=== PATIENT | female | born 1980 | race Hispanic/Latino ===

== ENCOUNTER 2018-04-09 23:12 | Emergency (ER) | payer SELFPAY ==
[2018-04-09] MEDS ORDERED: KETOROLAC 30 MG/ML INJ ONE (23:46)
[2018-04-09] MEDS ORDERED: NA CHLORIDE 0.9% 1,000 ML ONE (23:47)
[2018-04-09] MEDS ORDERED: CEFTRIAXONE/SWI 1gm 1 GM/10 ML SYR ONE ×2 (23:47)
[2018-04-10 00:25] LABS: Absolute Lymphocytes (CBC) 1.5 K/uL (0.7-4.9); Absolute Monocytes 0.5 K/uL (0.1-1.3); Absolute Neutrophil 2.3 K/uL (1.8-8.0); Basophils % 0.1 % (0-1.3); Eosinophils % 0.5 % (0-4.4); Lymphocytes % 34.3 % (15.3-44.8); MCH 26.5 pg (27.0-35.0); MCV 79.2 fL (80-100); MPV 9.8 fL (7.6-11.3); Monocytes % 11.3 % (3.3-12.3); RBC Red Blood Cell Count 4.41 M/uL (3.86-4.86)
[2018-04-10 00:43] LABS: ALT/SGPT 12 U/L (12-78); AST/SGOT 10 U/L (15-37); Albumin 3.4 g/dL (3.4-5.0); Alkaline Phosphatase 61 U/L (45-117); BUN Blood Urea Nitrogen 12 mg/dL (7-18); Bicarbonate 26 mmol/L (21-32); Bilirubin Direct < 0.1 mg/dL (0-0.2); Bilirubin Total 0.2 mg/dL (0.2-1.0); Glucose Level 98 mg/dL (74-106); Lipase 113 U/L (73-393); Potassium 3.6 mmol/L (3.5-5.1); Protein, Total 6.9 g/dL (6.4-8.2); Sodium Level 138 mmol/L (136-145)
--- NOTE | 2018-04-10 01:00 | ER ---
Nurse's Notes [facility] Name: Yesy Alexander Age: 37 yrs Sex: Female : 1980 Arrival Date: 04/09/2018 Time: 23:12 Bed 23 Private MD: Diagnosis: Low back pain;Constipation;Anemia, unspecified Presentation: 04/09 23:15 Presenting complaint: Patient states: that she is having right mid back and flank pain. fc Denies any urinary problems. Also denies any nausea, vomiting or diarrhea. Transition of care: patient was not received from another setting of care. Onset of symptoms was April 09, 2018 at 22:00. Risk Assessment: Do you want to hurt yourself or someone else? Patient reports no desire to harm self or others. Initial Sepsis Screen: Does the patient meet any 2 criteria? No. Patient's initial sepsis screen is negative. Does the patient have a suspected source of infection? No. Patient's initial sepsis screen is negative. Care prior to arrival: None. 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 - Social history:: Smoking status: Patient uses tobacco products, smokes one pack cigarettes per day. Patient uses alcohol, occasionally. Patient/guardian denies using street drugs. - Ebola Screening: : Patient negative for fever greater than or equal to 101.5 degrees Fahrenheit, and additional compatible Ebola Virus Disease symptoms Patient denies exposure to infectious person Patient denies travel to an Ebola-affected area in the 21 days before illness onset. - Family history:: not pertinent. Screenin:15 Abuse screen: Denies threats or abuse. Nutritional screening: No deficits noted. fc Tuberculosis screening: No symptoms or risk factors identified. Fall Risk None identified. Assessment: 04/10 00:19 General: Appears in no apparent distress. slender, well groomed, well developed, well tl3 nourished, Behavior is calm, cooperative, appropriate for age. Pain: Complains of pain in right low back and right mid back Pain currently is 6 out of 10 on a pain scale. Pain began 1 hour ago. Neuro: Level of Consciousness is awake, alert, obeys commands, Oriented to person, place, time, situation, Appropriate for age. Cardiovascular: Patient's skin is warm and dry. Respiratory: Airway is patent Respiratory effort is even, unlabored, Respiratory pattern is regular, symmetrical. GI: No signs and/or symptoms were reported involving the gastrointestinal system. : No signs and/or symptoms were reported regarding the genitourinary system. EENT: No signs and/or symptoms were reported regarding the EENT system. Derm: No signs and/or symptoms reported regarding the dermatologic system. 01:16 Reassessment: Patient appears in no apparent distress at this time. Patient and/or mg2 family updated on plan of care and expected duration. Pain level reassessed. Patient is alert, oriented x 3, equal unlabored respirations, skin warm/dry/pink. Vital Signs: 04/09 23:15 BP 125 / 73; Pulse 79; Resp 18; Temp 98.1(O); Pulse Ox 98% on R/A; Weight 72.57 kg (R); fc Height 5 ft. 5 in. (165.10 cm) (R); Pain 10/10; 04/10 00:19 Pulse 72; Resp 18; Pulse Ox 98% on R/A; tl3 01:16 BP 114 / 60; Pulse 71; Resp 18; Pulse Ox 100% on R/A; Pain 0/10; mg2 04/09 23:15 Body Mass Index 26.63 (72.57 kg, 165.10 cm) ED Course: 04/09 23:12 Patient arrived in ED. ds1 23:15 Arm band placed on Patient placed in an exam room, on a stretcher. fc 23:15 Patient has correct armband on for positive identification. Placed in gown. Bed in low fc position. Call light in reach. Pulse ox on. NIBP on. 23:15 No provider procedures requiring assistance completed. fc 23:17 Claude Edwards MD is Attending Physician. otilio 23:23 Triage completed. fc 23:36 Sonia Rios RN is Primary Nurse. tl3 23:40 Initial lab(s) drawn, by me, sent to lab. Inserted saline lock: 20 gauge in right tl3 antecubital area, using aseptic technique. Blood collected. 23:58 Patient moved to OR via wheelchair. kw1 04/10 00:06 CT completed. Patient tolerated procedure well. Patient moved back from OR. kw1 00:07 CT Stone Protocol In Process Unspecified. EDMS 01:17 IV discontinued, intact, bleeding controlled, No redness/swelling at site. Pressure mg2 dressing applied. Administered Medications: 04/09 23:40 Drug: Rocephin - (cefTRIAXone) 1 grams Route: IVPB; Infused Over: 5 mins; Site: right tl3 antecubital; Delivery: Primary tubing; 04/10 00:20 Follow up: IV Status: Completed infusion; IV Intake: 20ml tl3 04/09 23:44 Drug: TORadol 30 mg Route: IVP; Infused Over: 2 mins; Site: right antecubital; tl3 04/10 00:21 Follow up: Response: No adverse reaction; Pain is decreased tl3 00:26 Drug: NS 0.9% 1000 ml Route: IV; Rate: 1 bolus; Site: right antecubital; Delivery: tl3 Primary tubing; 01:17 Follow up: Response: No adverse reaction; IV Status: Completed infusion mg2 Intake: 00:20 IV: 20ml; Total: 20ml. tl3 Outcome: 00:59 Discharge ordered by . otilio 01:17 Discharged to home ambulatory, with family. mg2 01:17 Condition: stable 01:17 Discharge instructions given to patient, family, Instructed on discharge instructions, follow up and referral plans. medication usage, Demonstrated understanding of instructions, follow-up care, medications, Prescriptions given X 3. 01:18 Patient left the ED. mg2 Signatures: Dispatcher [employer] EDMO Claude Edwards MD MD cha Chretien, Felicia, RN RN Isabela Jc ds1 Mary Jo Hurtado kw1 Sonia Rios RN RN tl3 Kurt Melendrez RN RN mg2
--- NOTE | 2018-04-10 01:00 | EDPHYS ---
Physician Documentation [facility] Name: Yesy Alexander Age: 37 yrs Sex: Female : 1980 Arrival Date: 04/09/2018 Time: 23:12 Bed 23 Private MD: ED Physician Claude Edwards HPI: 04/09 23:35 This 37 yrs old Female presents to ER via Ambulatory with complaints of Back otilio Pain. 23:35 The patient presents with pain that is acute, with no known mechanism of injury. The otilio symptoms are located in the right mid back and right low back. Onset: The symptoms/episode began/occurred just prior to arrival. The pain does not radiate. Associated signs and symptoms: The patient has no apparent associated signs or symptoms. Modifying factors: The patient symptoms are alleviated by nothing, the patient symptoms are aggravated by movement. Severity of symptoms: At their worst the symptoms were mild, moderate, in the emergency department the symptoms are unchanged. 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 - Social history:: Smoking status: Patient uses tobacco products, smokes one pack cigarettes per day. Patient uses alcohol, occasionally. Patient/guardian denies using street drugs. - Ebola Screening: : Patient negative for fever greater than or equal to 101.5 degrees Fahrenheit, and additional compatible Ebola Virus Disease symptoms Patient denies exposure to infectious person Patient denies travel to an Ebola-affected area in the 21 days before illness onset. - Family history:: not pertinent. ROS: 23:35 Constitutional: Negative for fever, chills, and weight loss, Eyes: Negative for injury, otilio pain, redness, and discharge, ENT: Negative for injury, pain, and discharge, Neck: Negative for injury, pain, and swelling, Cardiovascular: Negative for chest pain, palpitations, and edema, Respiratory: Negative for shortness of breath, cough, wheezing, and pleuritic chest pain, Abdomen/GI: Negative for abdominal pain, nausea, vomiting, diarrhea, and constipation, : Negative for injury, bleeding, discharge, and swelling, MS/Extremity: Negative for injury and deformity, Skin: Negative for injury, rash, and discoloration, Neuro: Negative for headache, weakness, numbness, tingling, and seizure, Psych: Negative for depression, anxiety, suicide ideation, homicidal ideation, and hallucinations, Allergy/Immunology: Negative for hives, rash, and allergies, Endocrine: Negative for neck swelling, polydipsia, polyuria, polyphagia, and marked weight changes, Hematologic/Lymphatic: Negative for swollen nodes, abnormal bleeding, and unusual bruising. 23:35 Back: Positive for flank pain, on the right. Exam: 23:37 Constitutional: This is a well developed, well nourished patient who is awake, alert, otilio and in no acute distress. Head/Face: Normocephalic, atraumatic. Eyes: Pupils equal round and reactive to light, extra-ocular motions intact. Lids and lashes normal. Conjunctiva and sclera are non-icteric and not injected. Cornea within normal limits. Periorbital areas with no swelling, redness, or edema. ENT: Nares patent. No nasal discharge, no septal abnormalities noted. Tympanic membranes are normal and external auditory canals are clear. Oropharynx with no redness, swelling, or masses, exudates, or evidence of obstruction, uvula midline. Mucous membranes moist. Neck: Trachea midline, no thyromegaly or masses palpated, and no cervical lymphadenopathy. Supple, full range of motion without nuchal rigidity, or vertebral point tenderness. No Meningismus. Chest/axilla: Normal chest wall appearance and motion. Nontender with no deformity. No lesions are appreciated. Cardiovascular: Regular rate and rhythm with a normal S1 and S2. No gallops, murmurs, or rubs. Normal PMI, no JVD. No pulse deficits. Respiratory: Lungs have equal breath sounds bilaterally, clear to auscultation and percussion. No rales, rhonchi or wheezes noted. No increased work of breathing, no retractions or nasal flaring. Abdomen/GI: Soft, non-tender, with normal bowel sounds. No distension or tympany. No guarding or rebound. No evidence of tenderness throughout. Skin: Warm, dry with normal turgor. Normal color with no rashes, no lesions, and no evidence of cellulitis. MS/ Extremity: Pulses equal, no cyanosis. Neurovascular intact. Full, normal range of motion. Neuro: Awake and alert, GCS 15, oriented to person, place, time, and situation. Cranial nerves II-XII grossly intact. Motor strength 5/5 in all extremities. Sensory grossly intact. Cerebellar exam normal. Normal gait. Psych: Awake, alert, with orientation to person, place and time. Behavior, mood, and affect are within normal limits. 23:37 Back: pain, that is mild, that is moderate, of the right mid back and right low back, ROM is normal, normal spinal alignment noted, CVA tenderness, that is mild, that is moderate, is noted on the right. Vital Signs: 23:15 BP 125 / 73; Pulse 79; Resp 18; Temp 98.1(O); Pulse Ox 98% on R/A; Weight 72.57 kg (R); fc Height 5 ft. 5 in. (165.10 cm) (R); Pain 10/10; 04/10 00:19 Pulse 72; Resp 18; Pulse Ox 98% on R/A; tl3 01:16 BP 114 / 60; Pulse 71; Resp 18; Pulse Ox 100% on R/A; Pain 0/10; mg2 04/09 23:15 Body Mass Index 26.63 (72.57 kg, 165.10 cm) MDM: 04/09 23:17 Patient medically screened. [facility] 23:39 Data reviewed: vital signs, nurses notes, lab test result(s), radiologic studies, CT otilio scan. 04/09 23:34 Order name: Basic Metabolic Panel; Complete Time: 00:59 [facility] 04/09 23:34 Order name: CBC with Diff; Complete Time: 00:59 [facility] 04/09 23:34 Order name: Creatinine for Radiology; Complete Time: 00:59 [facility] 04/09 23:34 Order name: Hepatic Function; Complete Time: 00:59 [facility] 04/09 23:34 Order name: Lipase; Complete Time: 00:59 [facility] 04/09 23:34 Order name: IV Saline Lock; Complete Time: 00:18 [facility] 04/09 23:34 Order name: Labs collected and sent; Complete Time: 00:18 [facility] 04/09 23:40 Order name: CT Stone Protocol [facility] 04/09 23:55 Order name: Urine Dipstick--Ancillary (enter results) ms 04/09 23:55 Order name: Urine --Ancillary (enter results) ms 04/09 23:34 Order name: Urine Dipstick-Ancillary (obtain specimen); Complete Time: 00:18 [facility] 04/09 23:34 Order name: Urine Test (obtain specimen); Complete Time: 00:18 [facility] Administered Medications: 23:40 Drug: Rocephin - (cefTRIAXone) 1 grams Route: IVPB; Infused Over: 5 mins; Site: right tl3 antecubital; Delivery: Primary tubing; 04/10 00:20 Follow up: IV Status: Completed infusion; IV Intake: 20ml tl3 04/09 23:44 Drug: TORadol 30 mg Route: IVP; Infused Over: 2 mins; Site: right antecubital; tl3 04/10 00:21 Follow up: Response: No adverse reaction; Pain is decreased tl3 00:26 Drug: NS 0.9% 1000 ml Route: IV; Rate: 1 bolus; Site: right antecubital; Delivery: tl3 Primary tubing; 01:17 Follow up: Response: No adverse reaction; IV Status: Completed infusion mg2 Disposition: 04/10/18 00:59 Discharged to Home. Impression: Low back pain, Constipation, Anemia, unspecified. - Condition is Stable. - Discharge Instructions: Back Pain, Adult, Constipation, Adult, Uterine Fibroids, Musculoskeletal Pain, Constipation, Adult, [id number], Uterine Fibroids, [id number]. - Prescriptions for Tylenol- Codeine #3 300-30 mg Oral Tablet - take 2 tablet by ORAL route every 6 hours As needed; 30 tablet. Cipro 500 mg Oral Tablet - take 1 tablet by ORAL route every 12 hours for 7 days; 14 tablet. Miralax 17 gram/dose Oral - take 1 packet by ORAL route once daily dilute powder in 8 ounces of water or juice; 14 packet. - Medication Reconciliation Form, Thank You Letter, Antibiotic Education, Prescription Opioid Use form. - Follow up: Private Physician; When: 2 - 3 days; Reason: Recheck today's complaints, Continuance of care, Re-evaluation by your physician. - Problem is new. - Symptoms have improved. Signatures: Dispatcher [employer] Claude Jean MD MD cha Chretien, Felicia, RN RN Sonia Mckeon RN RN tl3 Kurt Melendrez, RN RN mg2 Corrections: (The following items were deleted from the chart) 01:18 00:59 04/10/2018 00:59 Discharged to Home. Impression: Low back pain; Constipation; mg2 Anemia, unspecified. Condition is Stable. Discharge Instructions: Back Pain, Adult, Musculoskeletal Pain. Prescriptions for Tylenol-Codeine #3 300-30 mg Oral Tablet - take 2 tablet by ORAL route every 6 hours As needed; 30 tablet, Cipro 500 mg Oral Tablet - take 1 tablet by ORAL route every 12 hours for 7 days; 14 tablet. and Forms are Medication Reconciliation Form, Thank You Letter, Antibiotic Education, Prescription Opioid Use. Follow up: Private Physician; When: 2 - 3 days; Reason: Recheck today's complaints, Continuance of care, Re-evaluation by your physician. Problem is new. Symptoms have improved. otilio
[2018-04-10 01:40] LABS: Urine Blood 2+ (NEG); Urine Glucose NEGATIVE (NEG); Urine Protein NEGATIVE (NEG); Urine Specific Gravity 1.015 (1.005-1.030)
--- NOTE | 2018-04-10 08:50 | RAD REPORT ---
EXAM DESCRIPTION: CT - Stone Protocol - 04/10/2018 4:37 am CLINICAL HISTORY: Flank pain. Abd pain;Flank pain COMPARISON: No comparisons TECHNIQUE: Axial images were obtained without oral or IV contrast. Lack of contrast limits solid org an and vascular assessment. The [id number] spans the entirety of the system partially obscuring uppermost abdomen and lung bases. Coronal reformatted images were obtained and reviewed. All CT scans are performed using dose optimization technique as appropriate and may include automated exposure control or mA/KV adjustment according to patient size. FINDINGS: The lower lung simon are clear. Imaged portions of the liver and spleen show no suspicious findings on non-contrast imaging. The panc reas and adrenal glands are normal. No pathologic lymphadenopathy in the abdomen or pelvis. No urinary tract stones or obstructive uropathy. No bowel obstruction, free air, free fluid or abscess. Normal appendix noted. No significant bony abnormality. Partially necrotic mass in the pelvis measuring 6.0 x 5.9 cm. IMPRESSION: No urinary tract stones or obstructive uropathy. Partially necrotic solid mass in the pelvis (6.0 x 5.9 cm). Differential considerations would include pedunculated fibroid or ovarian mass. Recommend MR female pelvis protocol with gadolinium for follow up assessment.
== END 2018-04-10 01:18 | disposition home or self-care (01) ==
LOC: ER 23:12
DX: K59.00 Constipation, unspecified (principal); D64.9 Anemia, unspecified; F17.210 Nicotine dependence, cigarettes, uncomplicated
CPT/HCPCS: 36415; 74176; 76377; 80048; 80076; 81003; 81025; 83690; 85025; 96361; 96365; 96375; 99284; J0696; J7030

== ENCOUNTER 2020-02-16 14:08 | Emergency (ER) | payer SELFPAY ==
[2020-02-16] MEDS ORDERED: HYDROCODONE/APAP 10/325 TAB ONE (14:59)
--- NOTE | 2020-02-16 15:26 | RAD REPORT ---
EXAM DESCRIPTION: RAD - Forearm Left - 02/16/2020 3:15 pm CLINICAL HISTORY: PAINacute onset arm pain following trauma COMPARISON: None. FINDINGS: Transverse fracture present in the distal shaft ulna. One- 2 mm of displacement present wi thout angulation. Radius is intact. Elbow and wrist joints also intact. No periosteal reaction. No pa thologic changes evident. Soft tissue swelling without foreign body. IMPRESSION: Transverse fracture distal shaft right ulna. Very minimal displacement present without a ngulation deformity.
--- NOTE | 2020-02-16 15:42 | EDPHYS ---
Physician Documentation [facility] Name: Yesy Alexander Age: 39 yrs Sex: Female : 1980 Arrival Date: 02/16/2020 Time: 14:11 Bed 15 Private MD: ED Physician Walker Dior HPI: 02/15 14:48 This 39 yrs old Female presents to ER via Ambulatory with complaints of Arm jr8 Injury. 14:48 The patient or guardian complains of decreased range of motion, pain, swelling, jr8 tenderness. The complaints affect the dorsal aspect of left forearm. Context: The problem was sustained at home, resulted from lifting or pulling, a heavy object. Onset: The symptoms/episode began/occurred acutely. Modifying factors: The symptoms are alleviated by nothing. the symptoms are aggravated by movement. Associated signs and symptoms: The patient has no apparent associated signs or symptoms. Severity of symptoms: At their worst the symptoms were moderate, in the emergency department the symptoms are unchanged. The patient has not experienced similar symptoms in the past. The patient has not recently seen a physician. 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 - Social history:: Smoking status: Patient reports the use of cigarette tobacco products, smokes one pack cigarettes per day. ROS: 15:38 Eyes: Negative for injury, pain, redness, and discharge, ENT: Negative for injury, jr8 pain, and discharge, Neck: Negative for injury, pain, and swelling, Cardiovascular: Negative for chest pain, palpitations, and edema, Respiratory: Negative for shortness of breath, cough, wheezing, and pleuritic chest pain, Abdomen/GI: Negative for abdominal pain, nausea, vomiting, diarrhea, and constipation, Back: Negative for injury and pain, Skin: Negative for injury, rash, and discoloration, Neuro: Negative for headache, weakness, numbness, tingling, and seizure. 15:38 MS/extremity: Positive for injury or acute deformity, decreased range of motion, pain, swelling, tenderness, of the dorsal aspect of left forearm. Exam: 15:38 Constitutional: This is a well developed, well nourished patient who is awake, alert, jr8 and in no acute distress. Cardiovascular: Regular rate and rhythm with a normal S1 and S2. No gallops, murmurs, or rubs. Normal PMI, no JVD. No pulse deficits. Respiratory: Lungs have equal breath sounds bilaterally, clear to auscultation and percussion. No rales, rhonchi or wheezes noted. No increased work of breathing, no retractions or nasal flaring. Abdomen/GI: Soft, non-tender, with normal bowel sounds. No distension or tympany. No guarding or rebound. No evidence of tenderness throughout. Back: No spinal tenderness. No costovertebral tenderness. Full range of motion. Skin: Warm, dry with normal turgor. Normal color with no rashes, no lesions, and no evidence of cellulitis. Neuro: Awake and alert, GCS 15, oriented to person, place, time, and situation. Cranial nerves II-XII grossly intact. Motor strength 5/5 in all extremities. Sensory grossly intact. Cerebellar exam normal. Normal gait. 15:38 Musculoskeletal/extremity: Extremities: grossly normal except: noted in the dorsal aspect of left forearm: ecchymosis, pain, swelling, tenderness, ROM: limited active range of motion, in the left arm, limited passive range of motion, in the left arm, limited active range of motion due to pain, in the left arm, limited passive range of motion due to pain, in the left arm, Circulation is intact in all extremities. Pulses: noted to be 2+ in the right radial artery and left radial artery, Sensation intact. Patient able to abduct and adduct fingers along with extend and flex wrist . Vital Signs: 14:27 BP 129 / 96; Pulse 75; Resp 18; Temp 98.2(O); Pulse Ox 99% on R/A; Weight 73.48 kg; ks7 Height 5 ft. 5 in. (165.10 cm); Pain 8/10; 15:32 BP 121 / 58; Pulse 68; Resp 18; Pulse Ox 99% ; Pain 2/10; ks7 15:35 Pulse Ox 100% ; Pain 2/10; ks7 16:00 BP 128 / 83; Pulse 67; Resp 18; Temp 98.2(O); Pulse Ox 99% ; Pain 0/10; ks7 16:20 BP 114 / 77; Pulse 65; Resp 18; Temp 98.2(O); Pulse Ox 100% on R/A; Pain 0/10; ks7 16:21 Pulse Ox 100% ; Pain 0/10; ks7 14:27 Body Mass Index 26.96 (73.48 kg, 165.10 cm) ks7 Procedures: 15:38 Splinting: Splint applied to dorsal aspect of left forearm using Orthoglass splint, jr8 applied by nurse. Examined by me, post splint application: neurovascular intact, 2+ distal pulses palpable, brisk capillary refill noted, Patient tolerated well. MDM: 14:19 Patient medically screened. jr8 15:38 Data reviewed: vital signs, nurses notes, radiologic studies, plain films. Data jr8 interpreted: Pulse oximetry: on room air is 100 %. Interpretation: normal. Counseling: I had a detailed discussion with the patient and/or guardian regarding: the historical points, exam findings, and any diagnostic results supporting the discharge/admit diagnosis, radiology results, the need for outpatient follow up, a orthopedic surgeon, to return to the emergency department if symptoms worsen or persist or if there are any questions or concerns that arise at home. 02/15 14:29 Order name: HALEY Forearm LEFT jr8 02/15 15:27 Order name: RAD; Complete Time: 15:36 EDMS 02/15 15:36 Order name: Anne-Marie Ferguson Forearm Splint jr8 Administered Medications: 14:49 Drug: [place] 10 mg-325 mg 1 tabs Route: PO; ks7 15:35 Follow up: Pulse Ox 100% ; Pain 2/10 Adult ks7 16:21 Follow up: Pulse Ox 100% ; Pain 0/10 Adult ks7 Disposition: 16:28 Co-signature as Attending Physician, Walker Dior MD. rn Disposition: 02/16/20 15:42 Discharged to Home. Impression: Fracture of forearm. - Condition is Stable. - Discharge Instructions: Forearm Fracture. - Prescriptions for Ibuprofen 800 mg Oral Tablet - take 1 tablet by ORAL route every 12 hours As needed take with food; 20 tablet. Tylenol- Codeine #3 300-30 mg Oral Tablet - take 2 tablets by ORAL route every 6 hours As needed; 12 tablet. - Medication Reconciliation Form, Thank You Letter, Antibiotic Education, Prescription Opioid Use form. - Follow up: Johnny Fernandez MD; When: 2 - 3 days; Reason: Recheck today's complaints, Continuance of care, Re-evaluation by your physician. - Problem is new. - Symptoms have improved. Signatures: Dispatcher [employer] EDWalker Oakley MD MD rn Roszak, Josh, PA PA jr8 Conchita Sanchez RN RN ks7 Corrections: (The following items were deleted from the chart) 16:21 15:42 02/16/2020 15:42 Discharged to Home. Impression: Fracture of forearm. Condition ks7 is Stable. Forms are Medication Reconciliation Form, Thank You Letter, Antibiotic Education, Prescription Opioid Use. Follow up: Johnny Fernandez; When: 2 - 3 days; Reason: Recheck today's complaints, Continuance of care, Re-evaluation by your physician. Problem is new. Symptoms have improved. jr8
--- NOTE | 2020-02-16 15:42 | ER ---
Nurse's Notes [facility] Name: Yesy Alexander Age: 39 yrs Sex: Female : 1980 Arrival Date: 02/16/2020 Time: 14:11 Bed 15 Private MD: Diagnosis: Fracture of forearm Presentation: 02/15 14:27 Chief complaint: Patient states: c/o L forearm pain. pt was lifting a couch last night ks7 while moving and felt a pop. deformity to L forearm. pt c/o 10/10 pain and numbness to L fingers. pt able to move hand and wrist but very painful. Coronavirus screen: Client denies travel out of the [place] in the last 14 days. At this time, the client does not indicate any symptoms associated with coronavirus-19. The client denies any previous COVID testing. Ebola Screen: Patient negative for fever greater than or equal to 101.5 degrees Fahrenheit, and additional compatible Ebola Virus Disease symptoms Patient denies exposure to infectious person. Patient denies travel to an Ebola-affected area in the 21 days before illness onset. Initial Sepsis Screen: Does the patient meet any 2 criteria? No. Patient's initial sepsis screen is negative. Does the patient have a suspected source of infection? No. Patient's initial sepsis screen is negative. Risk Assessment: Do you want to hurt yourself or someone else? Patient reports no desire to harm self or others. Onset of symptoms was February 15, 2020. 14:27 Method Of Arrival: Ambulatory ks7 14:27 Acuity: RIKKI 4 ks7 14:27 Acuity: RIKKI 3 ks7 Triage Assessment: 14:31 General: Appears in no apparent distress. uncomfortable, Behavior is calm, cooperative. ks7 Pain: Complains of pain in left arm Pain currently is 9 out of 10 on a pain scale. Quality of pain is described as sharp, Pain began 1 day ago. Is continuous. Musculoskeletal: Bony deformity noted of left arm Reports numbness in left hand pain in left arm since last night. Injury Description: Deformity sustained to left arm pt injured her arm last night. 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 - Social history:: Smoking status: Patient reports the use of cigarette tobacco products, smokes one pack cigarettes per day. Screenin:36 Abuse screen: Denies threats or abuse. Denies injuries from another. Nutritional ks7 screening: No deficits noted. Tuberculosis screening: No symptoms or risk factors identified. Fall Risk None identified. Assessment: 14:36 General: Appears in no apparent distress. uncomfortable, Behavior is calm, cooperative. ks7 Pain: Complains of pain in left arm. Musculoskeletal: Reports pain in left arm injury last night while moving furniture. L arm deformity and pain. pt reports numbness to L hands/fingers. 15:35 Reassessment: Patient is alert, oriented x 3, equal unlabored respirations, skin ks7 warm/dry/pink. pt states pain meds kicked in. "it's alright". Vital Signs: 14:27 BP 129 / 96; Pulse 75; Resp 18; Temp 98.2(O); Pulse Ox 99% on R/A; Weight 73.48 kg; ks7 Height 5 ft. 5 in. (165.10 cm); Pain 8/10; 15:32 BP 121 / 58; Pulse 68; Resp 18; Pulse Ox 99% ; Pain 2/10; ks7 15:35 Pulse Ox 100% ; Pain 2/10; ks7 16:00 BP 128 / 83; Pulse 67; Resp 18; Temp 98.2(O); Pulse Ox 99% ; Pain 0/10; ks7 16:20 BP 114 / 77; Pulse 65; Resp 18; Temp 98.2(O); Pulse Ox 100% on R/A; Pain 0/10; ks7 16:21 Pulse Ox 100% ; Pain 0/10; ks7 14:27 Body Mass Index 26.96 (73.48 kg, 165.10 cm) ks7 ED Course: 14:11 Patient arrived in ED. ag5 14:18 Patrick Manriquez PA is PHCP. jr8 14:18 Walker Dior MD is Attending Physician. jr8 14:20 Conchita Sanchez RN is Primary Nurse. ks7 14:31 Triage completed. ks7 14:31 Arm band placed on right wrist. ks7 14:36 Patient has correct armband on for positive identification. Bed in low position. Call ks7 light in reach. Side rails up X2. 14:36 No provider procedures requiring assistance completed. ks7 15:41 Johnny Fernandez MD is Referral Physician. jr8 16:15 Orthoglass splint: Sugar tong splint applied on left arm. splint applied by Shaka RO ks7 Tech. pt tolerated well Sling applied to left arm. 16:21 Patient did not have IV access during this emergency room visit. ks7 Administered Medications: 14:49 Drug: [place] 10 mg-325 mg 1 tabs Route: PO; ks7 15:35 Follow up: Pulse Ox 100% ; Pain 2/10 Adult ks7 16:21 Follow up: Pulse Ox 100% ; Pain 0/10 Adult ks7 Outcome: 15:42 Discharge ordered by . jr8 16:21 Discharged to home ambulatory. ks7 16:21 Condition: good 16:21 Discharge instructions given to patient, Instructed on discharge instructions, follow up and referral plans. medication usage, Demonstrated understanding of instructions, follow-up care, medications, Prescriptions given X 2. 16:21 Patient left the ED. ks7 Signatures: Patrick Manriquez PA PA jr8 Yefri Lazaro ag5 Conchita Sanchez, RN RN ks7 Corrections: (The following items were deleted from the chart) 16:20 16:16 BP 128 / 83; Pulse 67bpm; Resp 18bpm; Pulse Ox 99%; Temp 98.2F Oral; Pain 0/10; ks7 ks7
[2020-02-16 16:27] VITALS: TEMP 98.2
[2020-02-16 16:32] VITALS: BP 114/77; O2SAT 100
== END 2020-02-16 16:21 | disposition home or self-care (01) ==
LOC: ER 14:08
PROC: 2W3DX1Z Immobilization of Left Lower Arm using Splint (ICD-10-PCS; principal; 2020-02-16)
DX: S52.92XA Unspecified fracture of left forearm, initial encounter for closed fracture (principal); X50.0XXA Overexertion from strenuous movement or load, initial encounter; Y93.89 Activity, other specified; Y92.9 Unspecified place or not applicable; F17.210 Nicotine dependence, cigarettes, uncomplicated
CPT/HCPCS: 99283

== ENCOUNTER 2021-07-12 23:31 | Emergency (ER) | payer SELFPAY ==
--- OUTSIDE RECORDS SUMMARY | 2021-07-12 23:33 | XMS REPORT | Continuity of Care Document ---
:1980 Author Organization [facility] t Address [address] [place] [address] Care Team Providers Name Role Phone Barry Aquino MD Attending Clinician Grecia AQUINO Attending Clinician Unavailable Doctor Unassigned, Name Attending Clinician Unavailable Problems This patient has no known problems. Allergies, Adverse Reactions, Alerts Allergy Allergy Status Severity Reaction(s) Onset Inactive Treating Comm ents Source Name Type Date Date Clinician NO KNOWN Drug Active Univers ALLERGIE Class ity of [facility] Social History Social Habit Start Date Stop Date Quantity Comments Source Sex Assigned At [facility] Branch Exposure to Not sure [facility] SARS-CoV-2 (event) [facility] Branch Tobacco use and 2020-04-10 2020-04-10 Never used [facility] exposure 00:00:00 00:00:00 [facility] Smoking Status Start Date Stop Date Source Current every day smoker 2020-04-10 00:00:00 [facility] Medications Ordered Filled Start Stop Current Ordering Indication Dosage Frequency Signature Comments Components Source Medication Medication Date Date Medication? Clinician (SIG) Name Name acetaminoph 2020-0 Yes 4647 1{tbl} Take 1 Un angie en-codeine 8-20 tablet by ity of (TYLENOL-CO 00:00: mouth [place] DEINE #3) 00 every 4 Medical 300-30 mg (four) Branch tablet hours as needed for Pain (scale 7-10) for up to 40 doses. Indication s: acute pain acetaminoph 2020-0 Yes 4647 1{tbl} Take 1 Un angie en-codeine 8-20 tablet by ity of (TYLENOL-CO 00:00: mouth [place] DEINE #3) 00 every 4 Medical 300-30 mg (four) Branch tablet hours as needed for Pain (scale 7-10) for up to 40 doses. Indication s: acute pain acetaminoph 2020-0 Yes 4647 1{tbl} Take 1 Un angie en-codeine 8-20 tablet by ity of (TYLENOL-CO 00:00: mouth [place] DEINE #3) 00 every 4 Medical 300-30 mg (four) Branch tablet hours as needed for Pain (scale 7-10) for up to 40 doses. Indication s: acute pain acetaminoph 2020-0 Yes 4647 1{tbl} Take 1 Un angie en-codeine 8-20 tablet by ity of (TYLENOL-CO 00:00: mouth [place] DEINE #3) 00 every 4 Medical 300-30 mg (four) Branch tablet hours as needed for Pain (scale 7-10) for up to 40 doses. Indication s: acute pain acetaminoph 2020-0 Yes 4647 1{tbl} Take 1 Un angie en-codeine 8-20 tablet by ity of (TYLENOL-CO 00:00: mouth [place] DEINE #3) 00 every 4 Medical 300-30 mg (four) Branch tablet hours as needed for Pain (scale 7-10) for up to 40 doses. Indication s: acute pain acetaminoph 2020-0 Yes 4647 1{tbl} Take 1 Un angie en-codeine 8-20 tablet by ity of (TYLENOL-CO 00:00: mouth [place] DEINE #3) 00 every 4 Medical 300-30 mg (four) Branch tablet hours as needed for Pain (scale 7-10) for up to 40 doses. Indication s: acute pain acetaminoph 2020-0 Yes 4647 1{tbl} Take 1 Un angie en-codeine 8-20 tablet by ity of (TYLENOL-CO 00:00: mouth [place] DEINE #3) 00 every 4 Medical 300-30 mg (four) Branch tablet hours as needed for Pain (scale 7-10) for up to 40 doses. Indication s: acute pain No known No Univers medications [facility] [place] No known No Univers medications [facility] No known No Univers medications [facility] Vital Signs Vital Name Observation Time Observation Value Comments Source Systolic blood 2020-04-10 19:41:00 132 mm[Hg] [facility] Diastolic blood 2020-04-10 19:41:00 88 mm[Hg] Unive [facility] pressure Medical Branch Heart rate 2020-04-10 19:38:00 82 /min Universi ty [facility] Body weight 2020-04-10 19:38:[address] [facility] BMI 2020-04-10 19:38:00 23.63 kg/m2 Universi ty [facility] Branch Systolic blood 2020-02-28 18:15:00 119 mm[Hg] [facility] pressure Medical Branch Diastolic blood 2020-02-28 18:15:00 80 mm[Hg] Unive [facility] pressure Medical Branch Heart rate 2020-02-28 18:15:00 82 /min Universi ty [facility] Body height 2020-02-28 18:15:[address] [facility] Body weight 2020-02-28 18:15:00 64.411 kg stated [facility]i ty [facility] [place] BMI 2020-02-28 18:15:00 23.63 kg/m2 Universi ty [facility] Procedures Procedure Date / Time Performing Clinician Source Performed XR WRIST <3 VW LEFT 2020-04-10 19:54:03 Barry Aquino [facility] EXTERNAL PROVIDER RECORDS 2020-03-12 05:01:00 Doctor Nayeli, [facility] PATIENT FINANCIAL 2020-02-28 17:50:56 Doctor Nayeli, [facility] POLICY [facility] NO SHOW OR MISSED 2020-02-28 17:50:40 Doctor Tyler, [facility] APPOINTMENT POLICY [facility] ACKNOWLEDGEMENT NOTICE OF PRIVACY 2020-02-28 17:50:26 Doctor Nayeli, [facility] PRACTICES [facility] CONSENT TO CONTACT FOR 2020-02-28 17:50:12 Doctor Nayeli, [facility] VOLUNTARY RESEARCH [facility] CONSENT/REFUSAL FOR 2020-02-28 17:49:47 Doctor Nayeli [facility] DIAGNOSIS AND TREATMENT [facility] ASSIGNMENT OF BENEFITS 2020-02-28 17:49:29 Doctor Nayeli, [facility] Encounters Start End Encounter Admission Attending Care Care Encounter Source Date/Time Date/Time Type Type Clinicians Facility Department ID 2020-04-10 2020-04-10 [facility] [id number] Univers 14:54:02 23:59:00 Encounter [facility] [id number] ity of Surgical [id number] El as Specialti [id number] Id dical es [id number] [facility] 2020-04-10 2020-04-10 [facility] [id number] Univers 15:00:00 15:00:00 [facility] 2020-04-10 2020-04-10 Office [facility] [id number] Univers 14:29:57 14:44:57 Visit [facility] [id number] it y of Surgical [id number] El as Specialti [id number] Id dical es 198 [facility] 2020-04-10 2020-04-10 [facility] [id number] Univers 13:00:00 13:00:00 [facility] 2020-04-10 2020-04-10 [facility] [id number] Univers 13:00:00 13:00:00 [facility] 2020-03-12 2020-03-12 Orders Doctor MALVIN [id number] Univers 00:00:00 00:00:00 Only Unassigned, LOBO [id number] [facility] [id number] El as [id number] [address] 2020-02-28 2020-02-28 [facility] [id number] Univers 13:50:18 23:59:00 Encounter [facility] [id number] ity of Surgical [id number] El as Specialti [id number] Id dical es 809 [facility] 2020-02-28 2020-02-28 Office [facility] [id number] Univers 12:57:10 15:21:33 Visit [facility] [id number] it y of Surgical [id number] El as Specialti [id number] Id dical es 198 [facility] 2020-02-28 2020-02-28 Outpatient R KENIA [facility] [id number] Univers 13:00:00 13:00:00 BARRY ity of [facility] 2020-02-28 2020-02-28 Orders Doctor MALVIN [id number] Univers 00:00:00 00:00:00 Only Unassigned, LOBO [id number] ity of [facility] [id number] El as [id number] [address] 2020-02-28 2020-02-28 Telephone [place] [facility] [id number] Univers 00:00:00 00:00:00 [facility] [id number] it y of Surgical [id number] El as Specialti [phone] Id dical es 198 [facility] 2020-02-28 2020-02-28 Refill Doctor [facility] [id number] Univers 00:00:00 00:00:00 Unassigned, Health [id number] ity of [facility] [id number] El as Specialti [phone] Id dical es 198 [facility] Results Test Description Test Time Test Comments Results Result Sour e Comments XR WRIST <3 VW 2020-04-10 [employer] [facility] of LEFT 20:02:37 fracture distal [place] [facility] ical one third of the Branch ulna left arm it is in acceptable alignment and there are some signs of callus formation now x-ray taken in cast CONSENT TO CONTACT FOR VOLUNTARY RESEARCH 2020-02-28 17:50:1 2 Test Item Value Reference Range Interpretation Comme nts Consent To Contact For Voluntary Research (test code = 4947) Yes [facility]
[2021-07-13 02:53] LABS: Absolute Lymphocytes (CBC) 1.3 K/uL (0.7-4.9); Hematocrit 32.6 % (36.0-45.0); Lymphocytes % 37.9 % (15.3-44.8); RBC Red Blood Cell Count 4.78 M/uL (3.86-4.86)
[2021-07-13 02:59] LABS: Protime INR 1.7
[2021-07-13 03:19] LABS: ALT/SGPT 14 U/L (12-78); AST/SGOT 8 U/L (15-37); Albumin 3.7 g/dL (3.4-5.0); Alkaline Phosphatase 42 U/L (45-117); BUN Blood Urea Nitrogen 9 mg/dL (7-18); Bicarbonate 24 mmol/L (21-32); Bilirubin Direct < 0.1 mg/dL (0-0.2); Bilirubin Total 0.2 mg/dL (0.2-1.0); Glucose Level 104 mg/dL (74-106); Magnesium 2.3 mg/dL (1.8-2.4); NT PRO-BNP 53 pg/mL (<125); Potassium 3.3 mmol/L (3.5-5.1); Protein, Total 7.2 g/dL (6.4-8.2); Sodium Level 137 mmol/L (136-145); Troponin (Emerg Dept Use Only) < 0.02 ng/mL (0.0-0.045)
[2021-07-13] MEDS ORDERED: KETOROLAC 30 MG/ML INJ ONE (03:42)
[2021-07-13 04:43] LABS: Blood Morphology Comment NOTED (NOT SEEN); Hypochromasia 2+; Platelet Estimate ADEQ
[2021-07-13 05:09] LABS: SARS-COV-2 RT PCR POSITIVE (NEGATIVE)
--- NOTE | 2021-07-13 05:17 | ER ---
Nurse's Notes [facility] Name: Yesy Alexander Age: 41 yrs Sex: Female : 1980 Arrival Date: 07/12/2021 Time: 23:34 Bed 11 Private MD: Diagnosis: Coronavirus infection, unspecified Presentation: 07/13 02:03 Chief complaint: Patient states: she has been having intermittent chest pain all day bb with a cough x 2 days, denies fever, has congested nose. Coronavirus screen: cough unrelated to allergies, Client presents with at least one sign or symptom that may indicate coronavirus-19. Standard/surgical mask placed on the client. Ebola Screen: No symptoms or risks identified at this time. Initial Sepsis Screen: Does the patient meet any 2 criteria? No. Patient's initial sepsis screen is negative. Does the patient have a suspected source of infection? No. Patient's initial sepsis screen is negative. Risk Assessment: Do you want to hurt yourself or someone else? Patient reports no desire to harm self or others. Onset of symptoms was July 12, 2021. 02:03 Method Of Arrival: EMS: [facility] bb 02:03 Acuity: RIKKI 3 bb Triage Assessment: 02:05 General: Appears in no apparent distress. slender, Behavior is calm, cooperative. Pain: bb Complains of pain in chest Pain currently is 8 out of 10 on a pain scale. Neuro: Level of Consciousness is awake, alert, obeys commands, Oriented to person, place, time, situation. Cardiovascular: Capillary refill < 3 seconds Patient's skin is warm and dry. Respiratory: Respiratory effort is even, unlabored, Respiratory pattern is regular. GI: No signs and/or symptoms were reported involving the gastrointestinal system. Derm: Skin is pink, warm \T\ dry. Musculoskeletal: Circulation, motion, and sensation intact. 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 - Social history:: Smoking status: Patient reports the use of cigarette tobacco products, smokes one pack cigarettes per day. Patient uses alcohol, but reports only rare drinking. Patient/guardian denies using street drugs. Screenin:33 Abuse screen: Denies threats or abuse. Nutritional screening: No deficits noted. bb Tuberculosis screening: No symptoms or risk factors identified. Fall Risk None identified. Assessment: 02:33 Reassessment: No changes from previously documented assessment. Patient is alert, bb oriented x 3, equal unlabored respirations, skin warm/dry/pink. see triage assessment. 03:57 Reassessment: Patient is alert, oriented x 3, equal unlabored respirations, skin bb warm/dry/pink. pt resting quietly IV site intact, patent, family at bedside. 05:35 Reassessment: Patient is alert, oriented x 3, equal unlabored respirations, skin bb warm/dry/pink. pt verbalized understanding of and agrees to plan of care discharge instructions given pt ambulated with steady gait to exit accompanied by family. Vital Signs: 02:03 BP 114 / 89; Pulse 80; Resp 16 S; Temp 97.9(O); Pulse Ox 100% on R/A; Weight 61.23 kg bb (R); Height 5 ft. 5 in. (165.10 cm) (R); Pain 8/10; 03:58 BP 124 / 108; Pulse 74; Resp 16 S; Pulse Ox 98% on R/A; bb 05:34 BP 129 / 73; Pulse 64; Resp 16 S; Temp 97.8(O); Pulse Ox 99% on R/A; bb 02:03 Body Mass Index 22.46 (61.23 kg, 165.10 cm) ED Course: 07/12 23:34 Patient arrived in ED. kc5 01/03 02:05 Triage completed. bb 02:05 Arm band placed on Patient placed in an exam room, on a stretcher. Family accompanied bb patient. 02:12 Patrick Manriquez PA is PHCP. jr8 02:12 Darnell Parekh MD is Attending Physician. jr8 02:27 EKG done, by ED staff, reviewed by Patrick SOUSA. lt3 02:32 XRAY Chest (1 view) In Process Unspecified. EDMS 02:33 Kacey Cristina RN is Primary Nurse. bb 02:33 Patient has correct armband on for positive identification. Bed in low position. Call bb light in reach. 02:36 Initial lab(s) drawn, by me, sent to lab. Inserted saline lock: 22 gauge in right lt3 antecubital area, using aseptic technique. 02:37 Basic Metabolic Panel Sent. lt3 05:36 No provider procedures requiring assistance completed. IV discontinued, intact, bb bleeding controlled, No redness/swelling at site. Pressure dressing applied. Administered Medications: 03:40 Drug: Ketorolac 15 mg Route: IVP; Site: left antecubital; bb 04:31 Follow up: Response: No adverse reaction bb Outcome: 05:17 Discharge ordered by MD. lane 05:36 Discharged to home ambulatory, with family. gloria 05:36 Condition: stable 05:36 Discharge instructions given to patient, Instructed on discharge instructions, follow up and referral plans. medication usage, Demonstrated understanding of instructions, follow-up care, medications, Prescriptions given X 3. 05:36 Patient left the ED. bb Signatures: Dispatcher [employer] Kacey Wagoner RN RN Patrick Street PA PA jr8 Darnell Parekh MD MD 7 Alecia Pickard 5 Lady Gifford lt3 Corrections: (The following items were deleted from the chart) 02:06 02:05 Allergies: Aspirin; gloria castro
--- NOTE | 2021-07-13 05:18 | EDPHYS ---
Physician Documentation [facility] Name: Yesy Alexander Age: 41 yrs Sex: Female : 1980 Arrival Date: 07/12/2021 Time: 23:34 Bed 11 Private MD: ED Physician Darnell Parekh HPI: 07/13 02:25 This 41 yrs old Female presents to ER via EMS with complaints of Chest jr8 Pain/Cough. 02:25 The patient or guardian reports chest pain that is located primarily in the substernal jr8 area. Onset: acutely, today. The pain does not radiate. Associated signs and symptoms: Pertinent positives: cough. The chest pain is described as stabbing. Duration: The patient or guardian reports multiple episodes. Modifying factors: The symptoms are alleviated by nothing. the symptoms are aggravated by breathing, cough, palpation of area. Severity of pain: At its worst the pain was moderate in the emergency department the pain is unchanged. The patient has not experienced similar symptoms in the past. The patient has not recently seen a physician. 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 - Social history:: Smoking status: Patient reports the use of cigarette tobacco products, smokes one pack cigarettes per day. Patient uses alcohol, but reports only rare drinking. Patient/guardian denies using street drugs. ROS: 02:25 Eyes: Negative for injury, pain, redness, and discharge, ENT: Negative for injury, jr8 pain, and discharge, Neck: Negative for injury, pain, and swelling, Abdomen/GI: Negative for abdominal pain, nausea, vomiting, diarrhea, and constipation, Back: Negative for injury and pain, MS/Extremity: Negative for injury and deformity, Skin: Negative for injury, rash, and discoloration, Neuro: Negative for headache, weakness, numbness, tingling, and seizure. 02:25 Cardiovascular: Positive for chest pain, Negative for edema, orthopnea, palpitations, paroxysmal nocturnal dyspnea. 02:25 Respiratory: Positive for cough, Negative for dyspnea on exertion, shortness of breath, sputum production, wheezing. Exam: 02:25 Constitutional: This is a well developed, well nourished patient who is awake, alert, jr8 and in no acute distress. Cardiovascular: Regular rate and rhythm with a normal S1 and S2. No gallops, murmurs, or rubs. Normal PMI, no JVD. No pulse deficits. Respiratory: Lungs have equal breath sounds bilaterally, clear to auscultation and percussion. No rales, rhonchi or wheezes noted. No increased work of breathing, no retractions or nasal flaring. Abdomen/GI: Soft, non-tender, with normal bowel sounds. No distension or tympany. No guarding or rebound. No evidence of tenderness throughout. Back: No spinal tenderness. No costovertebral tenderness. Full range of motion. Skin: Warm, dry with normal turgor. Normal color with no rashes, no lesions, and no evidence of cellulitis. MS/ Extremity: Pulses equal, no cyanosis. Neurovascular intact. Full, normal range of motion. Neuro: Awake and alert, GCS 15, oriented to person, place, time, and situation. Cranial nerves II-XII grossly intact. Motor strength 5/5 in all extremities. Sensory grossly intact. 02:25 Neck: Trachea midline, no thyromegaly or masses palpated, and no cervical lymphadenopathy. Supple, full range of motion without nuchal rigidity, or vertebral point tenderness. No Meningismus. 02:25 Chest/axilla: Inspection: normal, Palpation: tenderness, that is moderate, of the anterior aspect of right upper chest, anterior aspect of left upper chest and mid-sternal area, that totally reproduces the patient's complaints. Vital Signs: 02:03 BP 114 / 89; Pulse 80; Resp 16 S; Temp 97.9(O); Pulse Ox 100% on R/A; Weight 61.23 kg bb (R); Height 5 ft. 5 in. (165.10 cm) (R); Pain 8/10; 03:58 BP 124 / 108; Pulse 74; Resp 16 S; Pulse Ox 98% on R/A; bb 05:34 BP 129 / 73; Pulse 64; Resp 16 S; Temp 97.8(O); Pulse Ox 99% on R/A; bb 02:03 Body Mass Index 22.46 (61.23 kg, 165.10 cm) bb MDM: 02:[address] 02:58 Data reviewed: vital signs, nurses notes, lab test result(s), EKG, radiologic studies, jr8 plain films. Data interpreted: Pulse oximetry: on room air is 100 %. Interpretation: normal. Counseling: I had a detailed discussion with the patient and/or guardian regarding: the historical points, exam findings, and any diagnostic results supporting the discharge/admit diagnosis, lab results, radiology results, the need for outpatient follow up, a family practitioner, to return to the emergency department if symptoms worsen or persist or if there are any questions or concerns that arise at home. 05:16 Differential Diagnosis: Bronchitis Influenza Upper Respiratory Infection Asthma mh7 Exacerbation Viral Syndrome Pneumonia. Response to treatment: the patient's symptoms have markedly improved after treatment. 07/13 02:20 Order name: Basic Metabolic Panel [facility] 07/13 02:20 Order name: CBC with Diff; Complete Time: 04:47 07/13 02:20 Order name: LFT's; Complete Time: 03:45 07/13 02:20 Order name: Magnesium; Complete Time: 03:45 07/13 02:20 Order name: NT PRO-BNP; Complete Time: 03:45 07/13 02:20 Order name: PT-INR; Complete Time: 04:47 07/13 02:20 Order name: Troponin (emerg Dept Use Only); Complete Time: 03:45 07/13 02:20 Order name: XRAY Chest (1 view) [facility] 07/13 02:20 Order name: Basic Metabolic Panel; Complete Time: 03:45 EDMS 07/13 02:55 Order name: Manual Differential; Complete Time: 04:47 EDMS 07/13 03:47 Order name: COVID-19/FLU A+B (Document "Date of Onset" if Symptomatic); Complete Time: mh7 15:44 07/13 04:03 Order name: D-Dimer; Complete Time: 04:47 EDMS 07/13 02:20 Order name: EKG; Complete Time: 02:21 07/13 02:20 Order name: EKG - Nurse/Tech; Complete Time: 02:28 07/13 02:20 Order name: IV Saline Lock; Complete Time: 02:36 07/13 02:20 Order name: Labs collected and sent; Complete Time: 03:57 07/13 02:20 Order name: O2 Per Protocol; Complete Time: 03:57 07/13 02:20 Order name: O2 Sat Monitoring; Complete Time: 03:57 Administered Medications: 03:40 Drug: Ketorolac 15 mg Route: IVP; Site: left antecubital; bb 04:31 Follow up: Response: No adverse reaction bb Disposition: 05:58 Co-signature as Attending Physician, Darnell Parekh MD. [facility] Disposition Summary: 07/13/21 05:17 Discharge Ordered Location: Home [facility] Problem: new [facility] Symptoms: have improved [facility] Condition: Stable [facility] Diagnosis - Coronavirus infection, unspecified [facility] Followup: [facility] - With: Private Physician - When: 1 - 2 days - Reason: Worsening of condition, Recheck today's complaints, Continuance of care, Re-evaluation by your physician Discharge Instructions: - Discharge Summary Sheet [facility] - COVID-19 [facility] - COVID-19 Frequently Asked Questions [facility] - 10 Things You Can Do to Manage Your COVID-19 Symptoms at Home - [place] [id number] - COVID-19: Quarantine vs. Isolation - [place] [address] Forms: - Medication Reconciliation Form [facility] - Thank You Letter [facility] - Antibiotic Education [facility] - Prescription Opioid Use [facility] Prescriptions: - albuterol sulfate 90 mcg/actuation Inhalation HFA aerosol inhaler - inhale 2 puff by INHALATION route every 6 hours As needed; 1 Inhaler; Refills: [facility] 0, Product Selection Permitted - Tessalon Perles 100 mg Oral Capsule - take 1 capsule by ORAL route every 8 hours As needed; 15 capsule; Refills: 0, 7 Product Selection Permitted - Zithromax Z-Stanley 250 mg Oral Tablet - take 1 tablet by ORAL route as directed for 5 days Day 1 - take two (2) tablets [facility] one time. Day 2, 3, 4 , 5 take one (1) tablet once daily.; 6 tablet; Refills: 0, Product Selection Permitted Signatures: [facility] Kacey Wagoner RN RN [address] PA PA [facility] Darnell Parekh MD MD 7 Corrections: (The following items were deleted from the chart) 02:06 02:05 Allergies: Aspirin; bb bb 04:03 03:47 D-DIMER+COAG.LAB.BRZ ordered. EDMS EDMS
[2021-07-13 05:47] VITALS: BP 129/73; TEMP 97.8; O2SAT 99
--- NOTE | 2021-07-14 10:18 | RAD REPORT ---
EXAM DESCRIPTION: RAD - Chest Single View - 07/13/2021 2:32 am CLINICAL HISTORY: CHEST PAIN COMPARISON: No comparisons FINDINGS: Lines: None. Lungs: No evidence of edema or pneumonia. Prominent right perihilar pulmonary vasculature and hilum. Pleural: No significant pleural effusions or pneumothorax. Cardiac: The heart size is within normal limits. Bones: No acute fractures. Other: IMPRESSION: No acute cardiopulmonary disease. Prominence of the right hilum and pulmonary vasculatur e. This is of uncertain etiology. Consider nonemergent contrast enhanced CT of the chest for further evaluation.
== END 2021-07-13 05:36 | disposition home or self-care (01) ==
LOC: ER 23:31
DX: U07.1 COVID-19 (principal); F17.210 Nicotine dependence, cigarettes, uncomplicated
CPT/HCPCS: 0240U; 36415; 71045; 80048; 80076; 83735; 83880; 84484; 85025; 85379; 85610; 93005; 96374; 99284